=== PATIENT | male | born 1995 | race Asian ===

== ENCOUNTER 2020-09-06 10:29 | Day surgery (SDC) | payer BC ==
[~2020-09-06 10:29] MED LIST: Dexamethasone 20 MG/5 ML VIAL ONE; Glycopyrrolate 0.2 MG/ML 5 ML SYRINGE ONE; Ketorolac Tromethamine 30 MG/ML VIAL ONE; Lidocaine 1% PF 5 ML VIAL ONE; Ondansetron PF 4 MG/2 ML Vial ONE; PROPOFOL 200 MG/20 ML VIAL ONE; Rocuronium Bromide 10 MG/ML (10ML VIAL) ONE
[2020-09-06] MEDS ORDERED: cefOXitin Sodium/Dextrose 2 GM/50 ML BAG ONE (12:56)
[2020-09-06] MEDS ORDERED: Bupivacaine 0.25% HCL 30 ML VIAL ONE (13:04)
[2020-09-06] MEDS ORDERED: XYLOCAINE 2%-EPI 1:100,000 20 ML VIAL ONE (13:04)
[2020-09-06] MEDS ORDERED: Fentanyl 100 MCG/2 ML VIAL ONE ×2 (13:10→15:14)
[2020-09-06] MEDS ORDERED: Midazolam HCl 2 mg/2 ml Vial ONE (13:23)
[2020-09-06] MEDS ORDERED: HYDROmorphone 2 MG/ML VIAL SLOW IVP PRN (13:59)
[2020-09-06] MEDS ORDERED: Ondansetron HCl/PF 4 MG/2 ML Vial IVP PRN (13:59)
[2020-09-06] MEDS ORDERED: Meperidine HCl/PF 25 MG/ML VIAL SLOW IVP PRN (13:59)
[2020-09-06] MEDS ORDERED: Promethazine HCl 25 MG/ML VIAL SLOW IVP PRN (13:59)
[2020-09-06] MEDS ORDERED: Promethazine HCl 25 MG/ML VIAL IM PRN (13:59)
--- NOTE | 2020-09-06 14:28 | OP ---
DATE OF PROCEDURE: 09/06/2020 PREOPERATIVE DIAGNOSIS: Acute appendicitis. POSTOPERATIVE DIAGNOSIS: Acute appendicitis. PROCEDURE PERFORMED: Laparoscopic appendectomy. ANESTHESIA: General. ESTIMATED BLOOD LOSS: Minimal. COMPLICATIONS: None. SPECIMEN: Appendix. FINDINGS: Appendicitis. DESCRIPTION OF PROCEDURE: The patient was taken to the operating room and laid supine on the operating table. After general anesthetic was obtained, a Degroot catheter was placed. The abdomen was prepped and draped in a sterile fashion. A curved incision was made below the umbilicus. Cautery was used to dissect down to and incise the intra-abdominal fascia. The abdominal cavity was entered bluntly using a Kathryn clamp. A holding stitch of Vicryl was placed on each side of the fascia. A Nelsy trocar was placed. High-flow peritoneum was obtained. A suprapubic 5-mm port and a left lower quadrant 5-mm port were placed under direct camera visualization. The cecum was rolled over to reveal acute appendicitis. A small window was made at the base of the appendix at the mesoappendix. A laparoscopic stapler was fired across the base of the appendix. A reload was fired across the mesoappendix. There was no bleeding on the staple lines. The appendix was placed in the EndoCatch bag and brought out through the Nelsy. The right lower quadrant and pelvis was irrigated using sterile solution. There was no evidence of perforation, no pus. All port sites were infiltrated using local anesthesia. All ports were removed under camera visualization. Pneumoperitoneum was let down. Vicryl suture was used to close the fascial defect below the umbilicus; #4-0 Monocryl and Dermabond were used to close the skin incision. The patient was en route to recovery in stable condition. All instrument counts, needle counts, and lap counts were correct. Job ID: [id number]
--- NOTE | 2020-09-06 14:52 | HP ---
CHIEF COMPLAINT: Right lower quadrant pain. HISTORY OF PRESENT ILLNESS: This is a 25-year-old male with a history of periumbilical pain yesterday, became more localized to the right lower quadrant early this morning. The pain is described as 8/10 and sharp, does not radiate. Not associated with dysuria, hematuria, diarrhea, or constipation. There is associated nausea and anorexia. No vomiting. Never had this pain before. Denies history of inflammatory bowel disease or chronic diarrhea. CT scan at [facility] reveals acute appendicitis. PAST MEDICAL HISTORY: He denies. PAST SURGICAL HISTORY: He denies. MEDICATIONS: Taken daily, none. ALLERGIES: NO KNOWN DRUG ALLERGIES. SOCIAL HISTORY: No smoking, alcohol, or other drugs. REVIEW OF SYSTEMS: Ten-system review of systems is otherwise negative except as described above. PHYSICAL EXAMINATION: HEENT: Sclerae are anicteric. Oropharynx clear. NECK: No lymphadenopathy. CHEST: Clear. HEART: Regular rate. ABDOMEN: Soft. Tender in the right lower quadrant with localized guarding without rebound. No abdominal or inguinal hernias. EXTREMITIES: No ischemic or edema to extremities. IMAGING STUDIES: CT scan shows acute appendicitis. ASSESSMENT: Acute appendicitis. PLAN: Laparoscopic appendectomy. Risks, benefits, and alternatives discussed. He gives consent. We will do this today. Job ID: [id number]
[2020-09-06] MEDS ORDERED: Meperidine HCl/PF 25 MG/ML VIAL ONE (15:05)
== END 2020-09-06 17:19 | disposition home or self-care (01) ==
LOC: SDC 10:29
PROVIDERS: ATTEND Surgery
PROC: 0DTJ4ZZ Resection of Appendix, Percutaneous Endoscopic Approach (ICD-10-PCS; principal; 2020-09-06)
DX: K35.80 Unspecified acute appendicitis (principal)
CPT/HCPCS: 88304; J0694; J1100; J1885; J2175; J2250; J2405; J2704; J3010; S0020